=== PATIENT | female | born 1990 | race Hispanic/Latino ===

== ENCOUNTER 2017-07-10 12:36 | Emergency (ER) | payer BC ==
[~2017-07-10] VITALS: Ht 160 cm; Wt 58.2 kg
[~2017-07-10 12:36] MED LIST: FIORICET 50-3001 CAP PO; PRENATAL1 TA1 PO; TYLENOL325 MG PO
[2017-07-10] MEDS ORDERED: METFORMIN1000 MG PO (14:03)
[2017-07-10] MEDS ORDERED: [UNRECOGNIZED DRUG - REMARK] PO (14:04)
[2017-07-10 14:21] LABS: HEMATOCRIT 37.6 % (37.0-47.0); HEMOGLOBIN 13.1 g/dl (12.0-16.0); IMMATURE GRANULOCYTES 0.2 % (0.0-1.0); MEAN CELL VOLUME 84.9 fL CALC (80.0-100.0); MEAN CORPUSCULAR HGB 29.6 pG CALC (26.0-32.0); MEAN CORPUSCULAR HGB CONC 34.8 g/L CALC (32.0-36.0); NEUT# 5.2 thou/uL (2.00-7.15); RED BLOOD COUNT 4.43 mill/uL (4.20-5.60); RED CELL DISTRI WIDTH 12.8 % (11.5-15.5)
[2017-07-10 14:23] LABS: URINE BILIRUBIN - DIPSTICK NEGATIVE (NEGATIVE); URINE BLOOD DIPSTICK NEGATIVE (NEGATIVE); URINE CLARITY CLEAR; URINE COLOR YELLOW; URINE GLUCOSE - DIPSTICK NEGATIVE (NEGATIVE); URINE KETONE NEGATIVE (NEGATIVE); URINE LEUK ESTERASE NEGATIVE (NEGATIVE); URINE NITRITE - DIPSTICK NEGATIVE (Negative); URINE PROTEIN - DIPSTICK NEGATIVE (NEG-TRACE); URINE UROBILINOGEN - DIPSTICK 0.2 E.U./dL (0.2)
[2017-07-10 14:40] LABS: ALBUMIN 4.8 g/dL (3.2-5.0); ALKALINE PHOSPHATASE 46 u/l (38-126); AMYLASE 79 u/l (30-110); ANION GAP 17 (6-22 (CALC)); BILIRUBIN, TOTAL 0.5 mg/dL (0.0-1.4); BUN 11 mg/dL (7-17); BUN/CREATININE RATIO 16 (12-20 (CALC)); CALCIUM 9.7 mg/dL (8.4-10.2); CARBON DIOXIDE 22 mmol/l (22-30); CHLORIDE 105 mmol/l (95-108); CREATININE 0.7 mg/dL (0.5-1.0); GFR > 60 ML/MIN (>=60 (CALC)); GFR FOR AFR.AMER. > 60 ML/MIN (>=60 (CALC)); GLUCOSE 107 mg/dL (65-105); LIPASE 123 u/l (23-300); POTASSIUM 3.7 mmol/l (3.5-5.1); SGOT/AST 19 u/l (14-36); SGPT/ALT 31 u/l (9-52); SODIUM 141 mmol/l (137-146); TOTAL PROTEIN 8.1 g/dL (6.3-8.2)
[2017-07-10 14:51] LABS: MYOGLOBIN 16 ng/mL (0 - 62)
[2017-07-10 18:20] VITALS: BP 113/60
== END 2017-07-10 18:32 | disposition home or self-care (01) | DRG 313 ==
LOC: ED 12:36
PROVIDERS: Emergency Medicine
DX: R07.89 Other chest pain (principal); E11.9 Type 2 diabetes mellitus without complications

== ENCOUNTER 2018-09-02 22:06 | Emergency (ER) | payer BC ==
[~2018-09-02] VITALS: Ht 160 cm; Wt 56.0 kg
[~2018-09-02 22:06] MED LIST changes: +METFORMIN1000 MG PO; +[UNRECOGNIZED DRUG - REMARK] PO
[2018-09-02] MEDS ORDERED: PERCOCET 5/325M1 TAB PO (23:44)
[2018-09-02] MEDS ORDERED: AMOXICILLIN500 MG PO (23:44)
[2018-09-03 00:01] VITALS: BP 111/71
== END 2018-09-03 00:01 | disposition home or self-care (01) | DRG 103 ==
LOC: ED 22:06
DX: R51 Headache (principal); E11.9 Type 2 diabetes mellitus without complications

== ENCOUNTER 2019-04-20 18:10 | Emergency (ER) | payer BC ==
[~2019-04-20] VITALS: Ht 160 cm; Wt 68.0 kg
[~2019-04-20 18:10] MED LIST changes: +AMOXICILLIN500 MG PO; +PERCOCET 5/325M1 TAB PO
[2019-04-20] MEDS ORDERED: METFORMIN500 M2 PO (18:26)
[2019-04-20] MEDS ORDERED: LEVEMIR FL100 UNIT/M SC (18:27)
[2019-04-20] MEDS ORDERED: MONTELUKAST SOD10 MG PO (18:27)
[2019-04-20] MEDS ORDERED: TRAMADOL HCL50 MG PO (18:32)
[2019-04-20] MEDS ORDERED: TORADOL PO (18:32)
[2019-04-20 18:35] VITALS: BP 113/77
== END 2019-04-20 18:35 | disposition home or self-care (01) | DRG 159 ==
LOC: ED 18:10
DX: M27.2 Inflammatory conditions of jaws (principal); E11.9 Type 2 diabetes mellitus without complications; Z79.4 Long term (current) use of insulin